=== PATIENT | female | born 1990 | race Caucasian/White ===

== ENCOUNTER 2019-08-17 08:09 | Day surgery (SDC) | payer OTHER ==
[2019-08-16 17:03] VITALS: BMI 31.3
[2019-08-16 17:15] LABS: BHCG - Serum Negative (NEGATIVE); Pregs Control Background? CLEAR/WHITE (CLR/WHITE); Pregs Control Bar Appear? YES (CONTROL BAR)
[2019-08-16 17:22] LABS: Hemoglobin 13.5 g/dL (12.0-16.0); Mean Corpuscular HGB CONC 34.6 g/dL (32.0-36.0); Mean Corpuscular Hemoglobin 33.4 pg (27.0-31.0); Mean Corpuscular Volume 96.4 fL (78.0-98.0); Mean Platelet Volume 9.1 fL (7.4-10.4); Platelet Count 212 thou/uL (130-400); RBC Distribution Width 12.6 % (11.5-14.5); Red Blood Cell (RBC) Count 4.04 mill/uL (4.20-5.40); White Blood Cell (WBC) Count 10.2 thou/uL (4.8-10.8)
[2019-08-16 17:46] LABS: ALT (SGPT) 17 U/L (8-55); AST (SGOT) 17 U/L (5-34); Albumin 4.4 g/dL (3.5-5.0); Alkaline Phosphatase 118 U/L (40-110); Anion Gap 14 mmol/L (10-20); BUN (Urea Nitrogen) 11 mg/dL (7.0-18.7); Bilirubin, Direct 0.2 mg/dL (0.1-0.3); Bilirubin, Total 0.4 mg/dL (0.2-1.2); Calc. Creatinine Clearance 0 mL/min (70-130); Carbon Dioxide 23 mmol/L (22-29); Chloride 102 mmol/L (98-107); Estimated GFR-MDRD 82; Glucose 82 mg/dL (70-105); Protein, Total 7.4 g/dL (6.0-8.3); Sodium 135 mmol/L (136-145)
[2019-08-17] MEDS ORDERED: Gabapentin 300 MG CAP ONE (08:29)
[2019-08-17] MEDS ORDERED: Famotidine/PF 20 mg/2ml Vial ONE (08:29)
[2019-08-17] MEDS ORDERED: CeleCOXIB 100 MG CAP ONE ×2 (08:30)
[2019-08-17] MEDS ORDERED: Glycopyrrolate 0.2 MG/ML 5 ML SYRINGE ONE (09:25)
[2019-08-17] MEDS ORDERED: Ondansetron PF 4 MG/2 ML Vial ONE (09:25)
[2019-08-17] MEDS ORDERED: Dexamethasone 20 MG/5 ML VIAL ONE (09:25)
[2019-08-17] MEDS ORDERED: Lidocaine 1% PF 5 ML VIAL ONE (09:25)
[2019-08-17] MEDS ORDERED: Esmolol 100 MG/10 ML VIAL ONE (09:25)
[2019-08-17] MEDS ORDERED: Rocuronium Bromide 10 MG/ML (10ML VIAL) ONE (09:25)
[2019-08-17] MEDS ORDERED: Metoprolol Tartrate 5 MG/5 ML VIAL ONE (09:25)
[2019-08-17] MEDS ORDERED: PROPOFOL 200 MG/20 ML VIAL ONE (09:25)
[2019-08-17] MEDS ORDERED: Lidocaine 1% w/Epinephrine 1:100K 20 ML VIAL ONE (11:08)
[2019-08-17] MEDS ORDERED: Bupivacaine PF 0.5% 30 ML VIAL ONE (11:08)
[2019-08-17] MEDS ORDERED: Fentanyl 100 MCG/2 ML VIAL ONE ×3 (11:10→14:11)
[2019-08-17] MEDS ORDERED: HYDROmorphone 2 MG/ML VIAL ONE (12:19)
[2019-08-17] MEDS ORDERED: HYDROmorphone 2 MG/ML VIAL SLOW IVP PRN (12:51)
[2019-08-17] MEDS ORDERED: Promethazine HCl 25 MG/ML VIAL SLOW IVP PRN (12:51)
[2019-08-17] MEDS ORDERED: Meperidine HCl/PF 25 MG/ML VIAL SLOW IVP PRN (12:51)
[2019-08-17] MEDS ORDERED: Promethazine HCl 25 MG/ML VIAL IM PRN ×2 (12:51→12:53)
[2019-08-17] MEDS ORDERED: Simethicone Chewable 80 MG TAB PO PRN (12:53)
[2019-08-17] MEDS ORDERED: Bisacodyl 10 MG SUPP PR PRN (12:53)
[2019-08-17] MEDS ORDERED: Ondansetron PF 4 MG/2 ML Vial IVP PRN (12:53)
[2019-08-17] MEDS ORDERED: Zolpidem Tartrate 5 MG TAB PO PRN (12:53)
[2019-08-17] MEDS ORDERED: Fentanyl 100 MCG/2 ML VIAL SLOW IVP PRN (12:53)
[2019-08-17] MEDS ORDERED: Acetaminophen 325 MG TAB PO PRN (12:53)
[2019-08-17] MEDS ORDERED: HYDROcodone/Acetaminophen 5/325 mg Tablet PO PRN (12:53)
[2019-08-17] MEDS ORDERED: PROVENTIL INHALER 6.7 G (200 INHALATIONS) INH PRN (12:57)
[2019-08-17] MEDS ORDERED: clonazePAM 0.5 MG TABLET PO PRN (12:57)
[2019-08-17] MEDS ORDERED: SUMAtriptan Succinate 25 MG TAB PO PRN (12:57)
[2019-08-17] MEDS ORDERED: Promethazine HCl 25 MG/ML VIAL ONE (14:02)
--- NOTE | 2019-08-17 14:58 | OP ---
DATE OF PROCEDURE: 08/17/2019 PREOPERATIVE DIAGNOSES: 1. Pelvic pain. 2. Menorrhagia. 3. Cervical dysplasia. POSTOPERATIVE DIAGNOSES: 1. Pelvic pain. 2. Menorrhagia. 3. Cervical dysplasia. PROCEDURES PERFORMED: 1. Robotic-assisted total laparoscopic hysterectomy. 2. Bilateral salpingectomy. 3. Nexplanon removal. ANESTHESIA: General endotracheal. CALENDAR CONTROL CLERK BLOOD BANK SURGEON: Rosibel Murray PA-C. ESTIMATED BLOOD LOSS: 25 mL. IVF: 1500 mL of crystalloid. URINE OUTPUT: 360 mL of clear urine. COMPLICATIONS: None. DRAINS: Shaw catheter. PATHOLOGY: Uterus, cervix, and bilateral fallopian tubes. FINDINGS: Small, mobile, 8-week size uterus. Normal-appearing cervix and vagina. Normal-appearing ovaries and fallopian tubes bilaterally. Some filmy adhesions in the posterior cul-de-sac. Ureters bilaterally visualized throughout the case and excellent hemostasis. DESCRIPTION OF PROCEDURE: The patient was taken to the operating room, where general anesthesia was obtained without difficulty. The patient was prepped and draped in a sterile fashion in the dorsal lithotomy position. A Shaw catheter was placed in the bladder. A speculum was placed in the vagina. The anterior lip of the cervix was grasped with a single-tooth tenaculum. The uterus then sounded to 8 cm and the ERASTO manipulator was assembled with an 8 cm tip and a 3.5 cm colpotomizer ring. The ERASTO was then inserted into the uterus, and tenaculum and speculum were removed out of the vagina. The colpotomizer ring was advanced to fit snugly around the cervix. Legs were placed in low lithotomy. Attention was turned to the abdomen. A mixture of 0.5% Marcaine plain and 1% lidocaine with epi were infiltrated into the umbilicus. A 12-mm skin incision was made and the Veress needle was passed into the abdomen, noting an opening pressure of 6 mmHg. Pneumoperitoneum was obtained. The Veress needle was removed. The 12-mm trocar and sleeve were advanced into the abdomen and confirmed placement with robotic camera. Steep Trendelenburg was obtained. Right and left lower quadrant 8-mm robotic trocars were placed under direct visualization after infiltrating with anesthetic solution. An 11-mm right upper quadrant actuarial assistant port was also placed under direct visualization after infiltrating with anesthetic. The robot was then docked. The right robotic arm contained monopolar scissors and left robotic arm contained the fenestrated bipolar. The surgeon console took control. The right fallopian tube was grasped and elevated. The mesosalpinx was sequentially clamped and cauterized with the bipolar and transected with the scissors until the medial portion of the fallopian tube was met, that was clamped across with the bipolar, cauterized and transected with the scissors and removed out of the abdomen. The utero-ovarian was cauterized with the bipolar and incised with the scissors as well as the midportion of the round ligament. The anterior leaf of the broad ligament was incised with the scissors on cautery and the posterior leaf of the broad ligament was dropped down with incising with the scissors down to the level of the uterosacral. The ureter was noted in the pelvic sidewall. The uterine vessels were skeletonized. The vesicouterine peritoneum was then incised and the adventitial fibers were dissected down bluntly below the level of the colpotomizer ring anteriorly. Attention was turned to the left side, where the left fallopian tube was grasped and elevated. The mesosalpinx was sequentially clamped, cauterized, and transected. The medial portion was then clamped across, cauterized, incised and the fallopian tube was removed out of the abdomen. The utero-ovarian ligament was clamped and cauterized with the bipolar and incised with the scissors as well as the round ligament. The posterior leaf of the broad ligament was incised down to the level of the uterosacral and the ureter was noted laterally. The anterior leaf of the broad ligament was incised down to the bladder flap. The bladder flap was then further created using a scoring technique with the scissors on the pubocervical fascia and blunt dissection with the back end of the scissors. The vessels on the left side were skeletonized adequately and cauterized. The vessels on the right were cauterized and the colpotomy was performed. The uterus was then placed into the vagina. The pelvis was irrigated and suctioned. Hemostasis was achieved of the vaginal cuff with the bipolar. The scissors were traded out for the needle rental car ferry driver and a 2-0 barbed STRATAFIX suture was used to close the cuff in a running fashion, incorporating vaginal mucosa and posterior peritoneum into each bite with excellent closure noted. Second layer was also placed with the same suture. Needle was cut and removed out of the abdomen. Irrigation was then performed of the surgical site as well as low pressure check and hemostasis was noted to be excellent. All instruments were removed out of the abdomen. Pneumoperitoneum was released. The fascia of the umbilical port was closed with 0 Vicryl in a [id number] fashion. The skin was closed with 4-0 Monocryl in a subcuticular fashion. Dermabond was applied. The vaginal cuff was checked and noted to have excellent closure and hemostasis. All instruments were removed out the vagina. Attention was then turned to the upper left arm that the Nexplanon device was identified. The distal tip of the device was infiltrated underneath it with 1% lidocaine with epinephrine. An incision was made over the tip with an 11 blade and the Nexplanon was extracted with the use of a hemostat without difficulty. Pressure was held over this incision and a bandage, which was placed. The patient tolerated the procedure well. Sponge, lap, and needle counts correct x2. The patient was taken to recovery room in stable condition. The patient received Ancef 2 g prior to procedure. Job ID: [id number]
[2019-08-17] MEDS: Sodium Chloride 0.9% 1,000 ML IV SCH (16:00)
[2019-08-17] MEDS: Ketorolac Tromethamine 30 MG/ML VIAL IVP SCH ×2 (16:07→22:17)
[2019-08-17] MEDS: HYDROcodone/Acetaminophen 5/325 mg Tablet PO PRN ×2 (17:05→21:19)
[2019-08-17] MEDS ORDERED: Amitriptyline HCl 100 MG TAB PO SCH (21:00)
[2019-08-17] MEDS ORDERED: traZODone HCl 50 MG TAB PO SCH (21:00)
[2019-08-17] MEDS ORDERED: Montelukast Sodium 10 mg Tablet PO SCH (21:00)
[2019-08-17] MEDS: Docusate Calcium (SURFAK) 240 MG CAP PO SCH (21:17)
[2019-08-17] MEDS: Ziprasidone 20 MG CAP PO SCH (21:19)
[2019-08-18] MEDS: Sodium Chloride 0.9% 1,000 ML IV SCH (04:15)
[2019-08-18] MEDS: Ketorolac Tromethamine 30 MG/ML VIAL IVP SCH ×2 (04:37→09:14)
[2019-08-18 06:42] LABS: Mean Corpuscular HGB CONC 32.8 g/dL (32.0-36.0); Mean Corpuscular Hemoglobin 32.3 pg (27.0-31.0); Mean Corpuscular Volume 98.3 fL (78.0-98.0); Mean Platelet Volume 9.2 fL (7.4-10.4); Platelet Count 198 thou/uL (130-400); RBC Distribution Width 12.6 % (11.5-14.5); Red Blood Cell (RBC) Count 3.72 mill/uL (4.20-5.40); White Blood Cell (WBC) Count 10.6 thou/uL (4.8-10.8)
[2019-08-18 08:30] VITALS: BP 105/67; TEMP 98.6
--- NOTE | 2019-08-18 08:33 | PDOC.EVN ---
Event Note - Event Note Event Note: POD1 S: No complaints, feels sore in abdomen but pain is controlled. Christina po, voiding and ambulating. O: VSSAF NAD unlabored respirations abd s/appttp/ND inc c/d/i with bruising No e/c/c Hgb 12 A) POD1 s/p RATLH bilat salpingectomy P) doing well postop, met all milestones, DC home today, FU 2 weeks.
[2019-08-18] MEDS ORDERED: FLUoxetine HCl 20 MG CAP PO SCH (09:00)
[2019-08-18] MEDS: Docusate Calcium (SURFAK) 240 MG CAP PO SCH (09:10)
[2019-08-18] MEDS: Ziprasidone 20 MG CAP PO SCH (09:10)
[2019-08-22] MEDS ORDERED: Ibuprofen 800 MG TAB PO SCH (22:00)
== END 2019-08-18 10:19 | disposition home or self-care (01) ==
LOC: SDC 08:09 → 3SW 08:10 → SDC 08-18 10:19
PROVIDERS: ATTEND Student in an Organized Health Care Education/Training Program
PROC: 0UT74ZZ Resection of Bilateral Fallopian Tubes, Percutaneous Endoscopic Approach (ICD-10-PCS; principal; 2019-08-17)
PROC: 0UP Female Reproductive System, Removal (ICD-10-PCS; principal; 2019-08-17)
PROC: 0UT94ZZ Resection of Uterus, Percutaneous Endoscopic Approach (ICD-10-PCS; principal; 2019-08-17)
DX: N87.0 Mild cervical dysplasia (principal); N83.8 Other noninflammatory disorders of ovary, fallopian tube and broad ligament; G43.909 Migraine, unspecified, not intractable, without status migrainosus; J45.20 Mild intermittent asthma, uncomplicated; F20.9 Schizophrenia, unspecified; F41.9 Anxiety disorder, unspecified; Z79.899 Other long term (current) drug therapy; Z88.8 Allergy status to other drugs, medicaments and biological substances; Z91.018 Allergy to other foods
CPT/HCPCS: 36415; 80048; 80076; 84703; 85027; 86850; 86900; 86901; 88307; J0690; J1100; J1170; J1885; J2001; J2405; J2550; J2704; J3010; S0020; S0028

== ENCOUNTER 2020-05-17 10:48 | Outpatient (CLI) | payer OTHER ==
[~2020-05-17 10:48] MED LIST: Magnevist 469MG/ML 20 ML VIAL ONE
--- NOTE | 2020-05-17 12:19 | MRI ---
MRI BRAIN WITH AND WITHOUT CONTRAST: Date: 05/17/2020 INDICATION: Intractable migraine headache. FINDINGS: Ventricles have normal size and position. No evidence of restricted diffusion. No evidence of mass or edema. No white matter abnormality. No abnormal enhancement. The intracranial internal carotid arteries, cerebral arteries, basilar artery, and dural venous sinus es demonstrate flow-voids. Paranasal sinuses and mastoids appear clear. Orbits unremarkable. 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 IMPRESSION: Unremarkable MRI brain. POS: [facility]
== END 2020-05-17 10:49 | disposition home or self-care (01) ==
LOC: MRI 10:48
PROVIDERS: ATTEND Nurse Practitioner Acute Care
DX: G43.119 Migraine with aura, intractable, without status migrainosus (principal)
CPT/HCPCS: 70553

== ENCOUNTER 2022-04-16 14:30 | Outpatient (CLI) | payer OTHER | END 2022-04-16 14:31 | disposition home or self-care (01) | LOC: ULT 14:30 | PROVIDERS: ATTEND Nurse Practitioner Adult Health | DX: R00.0 Tachycardia, unspecified (principal) | CPT/HCPCS: 93306 ==

== ENCOUNTER 2023-01-08 10:06 | Outpatient (CLI) | payer OTHER | END 2023-01-08 10:07 | disposition home or self-care (01) | LOC: BICULT 10:06 | PROVIDERS: ATTEND Internal Medicine | DX: R10.33 Periumbilical pain (principal); K76.0 Fatty (change of) liver, not elsewhere classified | CPT/HCPCS: 76700 ==

== ENCOUNTER 2025-02-14 13:53 | Outpatient (CLI) | payer OTHER | END 2025-02-14 13:54 | disposition home or self-care (01) | LOC: ULT 13:53 | PROVIDERS: ATTEND Family Medicine | DX: R10.2 Pelvic and perineal pain (principal) | CPT/HCPCS: 76856 ==